=== PATIENT | male | born 1940 | race Caucasian/White ===

== ENCOUNTER → 2016-11-14 | Day surgery (SDC) | payer MEDICARE ==
[~2016-11-14] VITALS: Ht 185.4 cm; Wt 83.9 kg
[~2016-11-14] MED LIST: 0.9% Sodium Chloride 1,000 ML IV SCH; ASPI-973 PO; ATRV10T PO; HYDR25TA4 PO; Sodium Chloride LOK Flush 10 mL Syringe IV PRN; fentaNYL-PF 50 mCg/mL 2 mL Inj IVPUSH PRN
[2016-11-14 09:52] VITALS: BP 139/89; PULSE 58; RESP 14; O2SAT 97
[2016-11-14 10:25] VITALS: BP 112/67; PULSE 55; RESP 16; O2SAT 99
[2016-11-14 10:35] VITALS: BP 110/65; PULSE 57; RESP 16; O2SAT 99
[2016-11-14 10:45] VITALS: BP 120/76; PULSE 55; RESP 16; O2SAT 99
--- NOTE | 2016-11-14 13:45 | ENDO ---
[address] [address] ENDOSCOPY PROCEDURE PATIENT: MATTIE CASAS : 1940 MR#: [id number] ADMIT: 11/14/2016 JOB ID: [id number] DATE OF SERVICE: 11/14/2016 PROCEDURE: Colonoscopy. PREOPERATIVE DIAGNOSIS(ES): Rectal bleeding. POSTOPERATIVE DIAGNOSIS(ES): 1. Mild sigmoid diverticulosis. 2. Small internal hemorrhoids. ANESTHESIA: Fentanyl 100 mcg, Versed 5 mg IV administered. COMPLICATIONS: None. BLOOD LOSS: Minimal. DESCRIPTION OF PROCEDURE: After risks and benefits were explained to the patient, informed consent was obtained. After anesthesia administered, colonoscope was then inserted from the rectum to the cecum. Mucosa carefully examined. Prep of the patient was fair. After procedure was done, the scope withdrawn and procedure terminated. FINDINGS: On inspection of the anus, no masses, hemorrhoids, ulcers, fissures that were seen. Throughout the entire examination, there was mild sigmoid diverticulosis. No polyps or masses were seen. Retroflexion showed small internal hemorrhoids. IMPRESSION: 1. Small internal hemorrhoids. 2. Mild sigmoid diverticulosis. RECOMMENDATIONS: High-fiber diet. Stool softener as needed.
== END | disposition home or self-care (01) ==
LOC: END 01:03
PROVIDERS: ATTEND Internal Medicine Gastroenterology
DX: K62.5 Hemorrhage of anus and rectum (principal); K64.8 Other hemorrhoids; K57.30 Diverticulosis of large intestine without perforation or abscess without bleeding; I10 Essential (primary) hypertension
CPT/HCPCS: 45378; 99153; G0500; J2250; J3010; J7030